=== PATIENT | female | born 1990 | race Caucasian/White ===

== ENCOUNTER → 2021-03-25 | Outpatient (CLI) | payer BC ==
--- NOTE | 2021-03-26 09:05 | US ---
EXAMINATION TYPE: US kidneys/renal and bladder DATE OF EXAM: 03/25/2021 COMPARISON: NONE CLINICAL HISTORY: R31.9 Hematuria. gross hematuria EXAM MEASUREMENTS: Right Kidney: 12.4 x 5.0 x 5.2cm Left Kidney: 11.1 x 5.5 x 6.2cm Right Kidney: mild hydronephrosis versus prominent renal pelvis Left Kidney: mild hydronephrosis versus prominent renal pelvis Bladder: wnl Bilateral Jets seen: left is not specifically imaged this exam. IMPRESSION: 1. Overt hydronephrosis is not identified. There may be some mild prominence of the renal collecting system. Follow-up can be performed as clinically indicated.
== END | disposition home or self-care (01) ==
LOC: RADUSWWP 15:50
PROVIDERS: ATTEND Obstetrics & Gynecology Obstetrics
DX: R31.0 Gross hematuria (principal)
CPT/HCPCS: 76770

== ENCOUNTER 2021-07-22 15:18 | Outpatient (CLI) | payer BC ==
[2021-07-22] MEDS ORDERED: ACETAMINOPHEN TAB 500 MG TAB PO STA (16:13)
[2021-07-22 16:28] VITALS: BP 125/73; PULSE 85; RESP 14; TEMP 97.7
--- NOTE | 2021-10-06 21:49 | P.MSEPDOC ---
Presenting Problems - Arrival Data Date of Arrival on Unit: 07/22/21 Time of Arrival on Unit: 15:19 Mode of Transport: Ambulatory - Complaint OB-Reason for Admission/Chief Complaint: Other Comment: racing heart at work that resulted in headache Medical History - Information : 2 Para: 1 Term: 0 : 1 Abortions: Spontaneous or Elective: 0 Number of Living Children: 1 - Gestational Age Gestational Age by MARTI (wks/days): 31 Weeks and 4 Days Review of Systems - Review of Systems Constitutional: No problems Breast: No problems ENT: No problems Cardiovascular: No problems Respiratory: No problems Gastrointestinal: No problems Genitourinary: No problems Musculoskeletal: No problems Neurological: No problems Skin: No problems Vital Signs - Temperature Temperature: 97.7 F Temperature Source: Temporal Artery Scan - Pulse Right Brachial Pulse Rate: 85 Pulse Assessment Method: Pulse Oximetry - Respirations Respiratory Rate: 14 Oxygen Delivery Method: Room Air O2 Sat by Pulse Oximetry: 99 - Blood Pressure Right Arm Blood Pressure: 125/73 Blood Pressure Mean: 90 Blood Pressure Source: Automatic Cuff Medical Screen Scoring - Assessment - Baby A Baseline FHR: 155 Heart Rate - NICHD Category: Category I (Normal) NST: Reactive Physician Notification - Physician Notified Physician Notified Date: 07/22/21 Physician Notified Time: 16:10 Physician: Lala Osorio New Order Received: Yes - Notification Comment Comment: pt may have tylenol, one time dose in triage, hydrate, recheck bp and headache status in 30 minutes, discontinue fm, discharge home after 30 minutes Maternal Triage Index - Maternal Triage Index Presenting for scheduled procedure w/no complaint: No - Stat/Priority 1 Stat Priority 1: No - Urgent/Priority 2 Urgent Priority 2: No - Prompt/Priority 3 Prompt Priority 3: No - Non-Urgent/Priority 4 Non-Urgent Priority 4: Yes Criteria Met for Priority 4: racing heart at work that resulted in headache Disposition - Disposition OB Disposition: Discharge to home Discharge Date: 07/22/21 Discharge Time: 17:00 I agree with the RN Medical Screening Exam: Yes Case reviewed; plan agreed upon as documented in EMR&OBIX.: Yes Diagnosis: PAROXYSMAL TACHYCARDIA, UNSPECIFIED
== END 2021-07-22 17:01 | disposition home or self-care (01) ==
LOC: FBPOP 15:18
PROVIDERS: ATTEND Obstetrics & Gynecology Obstetrics
DX: O99.413 Diseases of the circulatory system complicating pregnancy, third trimester (principal); I47.9 Paroxysmal tachycardia, unspecified; Z3A.31 31 weeks gestation of pregnancy
CPT/HCPCS: 99213

== ENCOUNTER 2021-08-06 10:39 | Observation (INO) | payer BC ==
[2021-08-06] MEDS ORDERED: BETAMET ACET-BETAMETH SOD PHOS 6 MG/ML MDV IM SCH (11:45)
[2021-08-06 12:01] LABS: Appearance,Urine Cloudy (Clear); Bacteria,Urine Rare /hpf; Bilirubin,Urine Negative (Negative); Blood,Urine Negative (Negative); Color,Urine Yellow; Glucose,Urine (UA) Negative (Negative); Ketones,Urine Negative (Negative); Leukocyte Esterase,Urine Large (Negative); Mucus,Urine Few /hpf; Nitrite,Urine Negative (Negative); Protein,Urine Trace (Negative); RBC,Urine 5 /hpf (0-5); Specific Gravity,Urine 1.023 (1.001-1.035); Squamous Epithelial Cell,Urine 6 /hpf (0-4); Urobilinogen,Urine <2.0 mg/dL (<2.0); WBC,Urine 45 /hpf (0-5)
[2021-08-06 12:03] LABS: Creatinine,Urine Random 192.3 mg/dL; Protein/Creatinine Ratio,Urine 0.031
[2021-08-06 12:32] LABS: Basophils % (A) 0 %; Eosinophils # (A) 0.1 k/uL (0-0.7); Eosinophils % (A) 1 %; HCT 37.8 % (34.0-46.0); HGB 12.2 gm/dL (11.4-16.0); Hypochromasia Slight; Lymphocytes # (A) 1.6 k/uL (1.0-4.8); Lymphocytes % (A) 13 %; MCHC 32.2 g/dL (31.0-37.0); MCV 86.9 fL (80.0-100.0); Mean Platelet Volume 8.1; Monocytes # (A) 0.4 k/uL (0-1.0); Monocytes % (A) 3 %; Neutrophils # (A) 10.1 k/uL (1.3-7.7); Neutrophils % (A) 82 %; Platelet Count 265 k/uL (150-450); RBC 4.35 m/uL (3.80-5.40); RDW 13.8 % (11.5-15.5); WBC 12.3 k/uL (3.8-10.6)
[2021-08-06 12:36] LABS: ALT 12 U/L (4-34); AST 24 U/L (14-36); African American GFR (CKD) >90 (>60 ml/min/1.73 sqM); Blood Urea Nitrogen 9 mg/dL (7-17); LDH 476 U/L (313-618); Non-African American GFR(CKD) >90 (>60 ml/min/1.73 sqM); Uric Acid 6.4 mg/dL (3.7-7.4)
--- NOTE | 2021-08-06 12:41 | P.HPOB ---
History of Present Illness H&P Date: 08/06/21 Chief Complaint: Pelvic pressure This is a 31-year-old 2 para 0101 woman with an estimated due date of 09/19/2021 based on first trimester ultrasound. She presents at 33-5/7 weeks gestation complaining of 3 days of worsening pelvic pressure. This occasionally wraps around into her back and groin. s\She denies contractions, leakage of fluid, vaginal bleeding. She complains of headache but denies visual changes, nausea, vomiting, fever, chills, lower extremity swelling. Obstetric history is significant for a delivery in 2016 at 33-2/7 weeks' gestation. The patient reports that she had sudden onset of pelvic cramping that she interpreted as the need to go to the bathroom. When she was unable to go to the bathroom but the urge to have a bowel movement continued and was uncomfortable she went to the local hospital. She was found to be completely dilated and delivered 20 minutes later. She reports that she felt essentially no pain or contractions other than the sensation of the need to go to the bathroom. She has been followed closely during this and did receive vaginal progesterone through 30 weeks gestation. She had a recent cervical length ultrasound on 07/28/2021 which showed a cervical length of 3.1 cm and a closed cervix, no funneling. Estimated weight was 71.4%, 2196 g. Placenta was anterior, no previa, not low lying. Upon initial evaluation in labor and delivery triage no contractions are graft on the tocometer. Sterile vaginal examination was performed and cervix is 3 cm and 60%, anterior on the RN initial evaluation. One hour later with my examination she is 4 cm dilated and 80% effaced, vertex in the -3 station, cervix anterior. heart tones are category 1 for gestational age. Laboratory data: Blood type O positive, antibody screen negative, rubella immune, VDRL nonreactive, hep Clau surface antigen negative, HIV negative, gonorrhea and clinic cultures negative, abnormal 1 hour glucose tolerance testing with normal three-hour glucose tolerance testing. Hemoglobin A1c 4.9. Maternity 21 testing negative. Group B strep status unknown. Review of Systems All systems: negative Past Medical History Additional Past Medical History / Comment(s): PCOS History of Any Multi-Drug Resistant Organisms: None Reported Past Surgical History: Bariatric Surgery, Cholecystectomy Additional Past Surgical History / Comment(s): Gastric sleeve bariatric surgery in 2014, ankle repair 2009 Past Anesthesia/Blood Transfusion Reactions: No Reported Reaction Past Psychological History: No Psychological Hx Reported Smoking Status: Never smoker Past Alcohol Use History: None Reported Past Drug Use History: None Reported Medications and Allergies Home Medications Medication Instructions Recorded Confirmed Type Pnv No.95/Ferrous Fum/Folic AC 1 each PO DAILY 08/06/21 08/06/21 History [ Multivitamin Tablet] metFORMIN HCL 500 mg PO DAILY 08/06/21 08/06/21 History Allergies Allergy/AdvReac Type Severity Reaction Status Date / Time No Known Allergies Allergy Verified 08/06/21 10:54 Exam Intake and Output 08/05/21 08/06/21 08/06/21 22:59 06:59 14:59 Other: Weight 128.367 kg This is a pleasant and comfortable appearing female who is in no acute distress. HEENT exam is unremarkable. Her breathing is unlabored and her heart is a regular rate and rhythm. The abdomen is obese and gravid with a large overhanging pannus. The abdomen is soft and nontender with no palpable contractions. The extremities on are free of any edema, erythema, rash or asymmetry. On pelvic examination the cervix is 4 cm dilated 80% effaced, vertex in -3 station. No contractions traced on tocometer or palpable at bedside. heart tones category 1 for gestational age. Results Abnormal Lab Results - Last 24 Hours (Table) 08/06/21 Range/Units 11:20 Urine Appearance Cloudy H (Clear) Urine Protein Trace H (Negative) Ur Leukocyte Esterase Large H (Negative) Urine WBC 45 H (0-5) /hpf Ur Squamous Epith Cells 6 H (0-4) /hpf Urine Bacteria Rare H (None) /hpf Urine Mucus Few H (None) /hpf Assessment and Plan (1) 33 weeks gestation of Current Visit: Yes Status: Acute Code(s): Z3A.33 - 33 WEEKS GESTATION OF SNOMED Code(s): 35955627 (2) labor Current Visit: Yes Status: Acute Code(s): O60.00 - LABOR WITHOUT DELIVERY, UNSPECIFIED TRIMESTER SNOMED Code(s): 2347825 (3) History of delivery Current Visit: Yes Status: Acute Code(s): Z87.51 - PERSONAL HISTORY OF PRE- TERM LABOR SNOMED Code(s): 534338798 Plan: 31 year old 2 para 0101 woman admitted at 33-5/7 weeks gestation with labor. History of previous delivery at 33 weeks and 2016. This delivery was generally asymptomatic and precipitous. Based on that history I do not believe she is stable for transport at this time. She will be admitted, group B strep prophylactic antibiotics initiated, betamethasone for lung maturity and fluid rehydration. There is no evidence of contraction activity either on monitoring, exam or per patient report therefore tocolytics not indicated. Should her mate cervix remain unchanged over several hours we can reconsider transferring to a tertiary care facility. I reviewed on the plan with the patient in detail and all questions were answered. 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
[2021-08-06] MEDS ORDERED: LACTATED RINGERS 1,000 ML IV SCH (12:45)
[2021-08-06] MEDS ORDERED: PENICILLIN G POTASSIUM 5,000,000 UNIT in DEXTROSE 5% IN WATER 100 ML IVPB STA ×2 (12:48)
[2021-08-06 13:23] VITALS: BP 139/97; PULSE 93; RESP 18; TEMP 97.9
[2021-08-06] MEDS ORDERED: ACETAMINOPHEN TAB 325 MG TAB PO STA (16:45)
[2021-08-06] MEDS ORDERED: PENICILLIN G POTASSIUM 2,500,000 UNIT in DEXTROSE 5% IN WATER 100 ML IVPB SCH ×2 (17:00)
--- NOTE | 2021-08-06 18:42 | P.PN ---
Progress Note - Text Progress Note Date: 08/06/21 Linda reports feeling well. Some occasional pelvic pressure but overall comfortable. She did have some on bloody show when up to the restroom. Denies contractions or leakage of fluids. Baby is active. Vital signs remained stable. status reassuring by external monitoring. Some uterine urine ability on tocometer, no regular contraction activity. On sterile vaginal exam cervix remains 4-1/2 cm dilated, 70-80% effaced, vertex in the -3 station. Membranes intact. Assessment 30-year-old 2 para 0101 woman at 33-5/7 weeks' gestation. Status post first dose of betamethasone at approximately 12 PM. Her cervix has been unchanged over the last 5-1/2 hours. She is not had any progression in her subjective discomfort or evidence of increasing contraction activity on the tocometer. She is received penicillin for group B strep prophylaxis. I do believe that she is stable to attempt transport. This is discussed at length with the patient and her . Risks of transfer would be precipitous progression of labor with potential delivery unattended. She did have a history of a previous rapid delivery which is of some concern. Reassuringly she is not had any progression of her symptoms or cervical dilation over many hours of observation. The patient and her do wish to attempt transfer is a hoping not to be from the infant in the event of delivery here and solo transfer of the . A believe this is reasonable. I have discussed the case with Dr. William Esparza, attending physician at [facility]. Case is reviewed in detail including her history of previous precipitous delivery. We in agreement that she is stable for transport at this time and she does accept the transfer. Appropriate transport providers have been contacted and we'll facilitate the transfer. All consents obtained and in the chart.
== END 2021-08-06 19:10 | disposition other institution (70) ==
LOC: FBPOP 10:39 → INTOOBSV 12:25 → 4FBP 12:25
PROVIDERS: ADMIT Obstetrics & Gynecology; ATTEND Obstetrics & Gynecology Obstetrics
DX: O60.03 Preterm labor without delivery, third trimester (principal); Z3A.33 33 weeks gestation of pregnancy; R51.9 Headache, unspecified; O99.283 Endocrine, nutritional and metabolic diseases complicating pregnancy, third trimester; E28.2 Polycystic ovarian syndrome; Z79.84 Long term (current) use of oral hypoglycemic drugs; Z90.49 Acquired absence of other specified parts of digestive tract; O99.843 Bariatric surgery status complicating pregnancy, third trimester; Z87.51 Personal history of pre-term labor
CPT/HCPCS: 59025; 99215; 96365; 96372; 82731; 82570; 84156; 82565; 83615; 84450; 84460; 84520; 84550; 85025; 81001; G0378; J2540; J0702

== ENCOUNTER 2021-08-09 09:43 | Outpatient (CLI) | payer BC ==
[2021-08-09] MEDS ORDERED: ACETAMINOPHEN IV (For NPO) 1,000 MG in EMPTY BAG 1 BAG IVPB STA (10:10)
[2021-08-09] MEDS ORDERED: LACTATED RINGERS 1,000 ML IV SCH (10:15)
[2021-08-09 10:50] LABS: Basophils % (A) 0 %; Eosinophils # (A) 0.1 k/uL (0-0.7); Eosinophils % (A) 0 %; HGB 10.8 gm/dL (11.4-16.0); Hypochromasia Slight; Lymphocytes # (A) 2.3 k/uL (1.0-4.8); Lymphocytes % (A) 18 %; MCH 28.1 pg (25.0-35.0); MCHC 32.8 g/dL (31.0-37.0); MCV 85.7 fL (80.0-100.0); Mean Platelet Volume 8.1; Monocytes # (A) 0.7 k/uL (0-1.0); Monocytes % (A) 5 %; Neutrophils # (A) 9.8 k/uL (1.3-7.7); Neutrophils % (A) 75 %; Platelet Count 306 k/uL (150-450); RBC 3.85 m/uL (3.80-5.40); RDW 14.1 % (11.5-15.5); WBC 13.1 k/uL (3.8-10.6)
[2021-08-09 10:54] LABS: Appearance,Urine Cloudy (Clear); Bacteria,Urine Rare /hpf; Bilirubin,Urine Negative (Negative); Blood,Urine Small (Negative); Calcium Oxalate Crystals,Urine Occasional /hpf; Color,Urine Yellow; Glucose,Urine (UA) Negative (Negative); Ketones,Urine Negative (Negative); Leukocyte Esterase,Urine Small (Negative); Mucus,Urine Many /hpf; Nitrite,Urine Negative (Negative); PH, Urine 7.5 (5.0-8.0); Protein,Urine Trace (Negative); RBC,Urine 40 /hpf (0-5); Specific Gravity,Urine 1.027 (1.001-1.035); Squamous Epithelial Cell,Urine 4 /hpf (0-4); Urobilinogen,Urine <2.0 mg/dL (<2.0); WBC,Urine 11 /hpf (0-5)
[2021-08-09 11:06] LABS: ALT 14 U/L (4-34); AST 22 U/L (14-36); African American GFR (CKD) >90 (>60 ml/min/1.73 sqM); Blood Urea Nitrogen 8 mg/dL (7-17); LDH 345 U/L (313-618); Non-African American GFR(CKD) >90 (>60 ml/min/1.73 sqM); Uric Acid 6.2 mg/dL (3.7-7.4)
[2021-08-09 11:08] LABS: Creatinine,Urine Random 214.3 mg/dL; Protein/Creatinine Ratio,Urine 0.061
[2021-08-09 12:14] VITALS: BP 133/85; PULSE 72; RESP 18; TEMP 98
--- NOTE | 2021-10-06 21:52 | P.MSEPDOC ---
Presenting Problems - Arrival Data Date of Arrival on Unit: 08/09/21 Time of Arrival on Unit: 09:55 Mode of Transport: Ambulatory - Complaint OB-Reason for Admission/Chief Complaint: Headache Comment: Headache and pelvic pressure Medical History - Information : 2 Para: 1 Term: 0 : 1 Abortions: Spontaneous or Elective: 0 Number of Living Children: 1 - Gestational Age Gestational Age by MARTI (wks/days): 34 Weeks and 1 Days - History Complications: Prior Comment: pt transferred this weekemyvonne, [facility] at [facility] Review of Systems - Review of Systems Constitutional: No problems Breast: No problems ENT: No problems Cardiovascular: No problems Respiratory: No problems Gastrointestinal: No problems Genitourinary: No problems Musculoskeletal: No problems Neurological: No problems Skin: No problems Vital Signs - Temperature Temperature: 98.0 F Temperature Source: Oral - Pulse Right Sitting Brachial Pulse Rate: 72 Pulse Assessment Method: Automatic Cuff - Respirations Respiratory Rate: 18 Oxygen Delivery Method: Room Air O2 Sat by Pulse Oximetry: 99 - Blood Pressure Left Arm Sitting Blood Pressure: 133/85 Blood Pressure Mean: 101 Medical Screen Scoring - Cervical Exam Dilation (cm): 3 Effacement (%): 60 Station: -2 Membranes: Intact - Assessment - Baby A Baseline FHR: 160 Heart Rate - NICHD Category: Category I (Normal) NST: Reactive Physician Notification - Physician Notified Physician Notified Date: 08/09/21 Physician Notified Time: 12:00 Physician: Lala Osorio New Order Received: Yes - Notification Comment Comment: dc home. mod bedrest, pelvic rest, antibiotics, and increase po fluids. Follow up Wed. as scheduled. Maternal Triage Index - Maternal Triage Index Presenting for scheduled procedure w/no complaint: No - Stat/Priority 1 Stat Priority 1: No - Urgent/Priority 2 Urgent Priority 2: No - Prompt/Priority 3 Prompt Priority 3: No - Non-Urgent/Priority 4 Non-Urgent Priority 4: Yes Criteria Met for Priority 4: PIH eval, sterile vaginal exam, r/o kidney stone Disposition - Disposition OB Disposition: Discharge to home Discharge Date: 08/09/21 Discharge Time: 12:14 I agree with the RN Medical Screening Exam: Yes Case reviewed; plan agreed upon as documented in EMR&OBIX.: Yes Diagnosis: HEADACHE, UNSPECIFIED
== END 2021-08-09 12:16 | disposition home or self-care (01) ==
LOC: FBPOP 09:43
PROVIDERS: ATTEND Obstetrics & Gynecology Obstetrics
DX: O26.893 Other specified pregnancy related conditions, third trimester (principal); R51.9 Headache, unspecified; Z3A.34 34 weeks gestation of pregnancy
CPT/HCPCS: 59025; 99215; 96361; 96365; 82570; 84156; 82565; 83615; 84450; 84460; 84520; 84550; 85025; 81001; J0131

== ENCOUNTER 2021-08-30 11:00 | Outpatient (CLI) | payer BC ==
[2021-08-30] MEDS ORDERED: LACTATED RINGERS 1,000 ML IV ONE (11:15)
[2021-08-30 11:33] LABS: Appearance,Urine Clear (Clear); Bilirubin,Urine Negative (Negative); Blood,Urine Small (Negative); Calcium Oxalate Crystals,Urine Few /hpf; Color,Urine Yellow; Glucose,Urine (UA) Negative (Negative); Ketones,Urine Negative (Negative); Leukocyte Esterase,Urine Small (Negative); Mucus,Urine Occasional /hpf; Nitrite,Urine Negative (Negative); PH, Urine 6.5 (5.0-8.0); Protein,Urine Trace (Negative); RBC,Urine 60 /hpf (0-5); Specific Gravity,Urine 1.023 (1.001-1.035); Squamous Epithelial Cell,Urine 2 /hpf (0-4); WBC,Urine 3 /hpf (0-5)
[2021-08-30 13:14] VITALS: BP 136/84; PULSE 88; RESP 18; TEMP 97
--- NOTE | 2021-10-06 22:03 | P.MSEPDOC ---
Presenting Problems - Arrival Data Date of Arrival on Unit: 08/30/21 Time of Arrival on Unit: 11:08 Mode of Transport: Ambulatory - Complaint OB-Reason for Admission/Chief Complaint: Other Comment: Pt sent from Office for repeat SVE, IV hydration and UA. Medical History - Information : 2 Para: 1 Term: 0 : 1 Abortions: Spontaneous or Elective: 0 Number of Living Children: 1 - Gestational Age Gestational Age by MARTI (wks/days): 37 Weeks and 1 Days - History Complications: Prior Review of Systems - Review of Systems Constitutional: No problems Breast: No problems ENT: No problems Cardiovascular: No problems Respiratory: No problems Gastrointestinal: No problems Genitourinary: No problems Musculoskeletal: No problems Neurological: No problems Skin: No problems Vital Signs - Temperature Temperature: 97.0 F Temperature Source: Temporal Artery Scan - Pulse Right Sitting Brachial Pulse Rate: 88 Pulse Assessment Method: Automatic Cuff - Respirations Respiratory Rate: 18 Oxygen Delivery Method: Room Air O2 Sat by Pulse Oximetry: 98 - Blood Pressure Right Arm Sitting Blood Pressure: 136/84 Blood Pressure Mean: 101 Blood Pressure Source: Automatic Cuff Medical Screen Scoring - Cervical Exam Dilation (cm): 4 Effacement (%): 80 Station: -2 Membranes: Intact - Assessment - Baby A Baseline FHR: 135 Heart Rate - NICHD Category: Category I (Normal) NST: Reactive Physician Notification - Physician Notified Physician Notified Date: 08/30/21 Physician Notified Time: 12:06 Physician: Lala Osorio New Order Received: Yes - Notification Comment Comment: No cervical change in the last 2 hours, UA results reviewed, IV hydration x1L. Ok to dc home. Pt to return with continued or worsening symptoms. Maternal Triage Index - Maternal Triage Index Presenting for scheduled procedure w/no complaint: Yes - Scheduled/Requesting Priority 5 Scheduled/Requesting Priority 5: No Disposition - Disposition OB Disposition: Discharge to home Discharge Date: 08/30/21 Discharge Time: 13:10 I agree with the RN Medical Screening Exam: Yes Case reviewed; plan agreed upon as documented in EMR&OBIX.: Yes Diagnosis: FALSE LABOR AT OR AFTER 37 COMPLETED WEEKS OF GESTATION
== END 2021-08-30 13:16 | disposition home or self-care (01) ==
LOC: FBPOP 11:00
PROVIDERS: ATTEND Obstetrics & Gynecology Obstetrics
DX: O47.1 False labor at or after 37 completed weeks of gestation (principal); Z3A.37 37 weeks gestation of pregnancy
CPT/HCPCS: 59025; 81001; 96360; 96361; 99214

== ENCOUNTER 2021-09-08 16:55 | Inpatient (IN) | payer BC ==
[2021-09-08] MEDS ORDERED: LIDOCAINE 1% (PF) 10 MG/ML (30 ML SDV) SQ PRN (17:37)
[2021-09-08] MEDS ORDERED: CARBOPROST TROMETHAMINE 250 MCG/ML 1 ML AMP IM PRN (17:37)
[2021-09-08] MEDS ORDERED: METHYLERGONOVINE 0.2 MG/ML 1 ML AMP IM PRN (17:37)
[2021-09-08] MEDS ORDERED: TERBUTALINE 1 MG/ML VIAL SQ PRN (17:37)
[2021-09-08] MEDS ORDERED: OXYTOCIN 10 UNIT/ML 1 ML VIAL IM PRN (17:37)
[2021-09-08] MEDS ORDERED: BUTORPHANOL 1 MG/ML 1 ML VIAL IV PRN (17:40)
[2021-09-08] MEDS ORDERED: OXYTOCIN 30 UNITS/500 ML NS 30 UNIT in SALINE 1 500ML.BAG IV SCH (17:45)
[2021-09-08 17:55] LABS: Basophils % (A) 0 %; Eosinophils # (A) 0.1 k/uL (0-0.7); Eosinophils % (A) 1 %; HCT 36.1 % (34.0-46.0); HGB 11.9 gm/dL (11.4-16.0); Hypochromasia Slight; Lymphocytes # (A) 2.1 k/uL (1.0-4.8); Lymphocytes % (A) 16 %; MCH 26.9 pg (25.0-35.0); MCV 81.6 fL (80.0-100.0); Mean Platelet Volume 8.6; Monocytes # (A) 0.5 k/uL (0-1.0); Monocytes % (A) 4 %; Neutrophils % (A) 77 %; Platelet Count 327 k/uL (150-450); RBC 4.42 m/uL (3.80-5.40); RDW 14.5 % (11.5-15.5)
--- NOTE | 2021-09-08 19:01 | P.HPOB ---
History of Present Illness H&P Date: 09/08/21 Chief Complaint: 38+ weeks, spontaneous rupture of membranes The patient is a 31-year-old 2 para 0101 admitted at 38+ weeks as established by early ultrasound present with documented spontaneous rupture of membranes at 4:00 this afternoon. She denies any ongoing contractions. Her has been essentially uncomplicated. She does carry a history of a gastric sleeve in the past. She additionally has a history of a 33 week delivery which was fairly precipitous in nature but has had no significant problems this . On labor and delivery, all signs reassuring with a category 1 heart rate tracing. Group B strep status is negative. Obstetrical history: 2 para 0101 with a previous 33 week normal vaginal delivery, fairly precipitous in nature. Current statistics are listed in history of present illness. EDC of 09/19/2021 as established by ultrasound. Laboratory workup demonstrates a blood type of O+ with a negative antibody screen. Rubella status is immune. The remainder of the laboratory workup was within normal limits. Early Glucola was normal. Second trimester Glucola was elevated but followed by a normal three-hour glucose tolerance test. Group B strep status is negative. Gynecologic history: Unremarkable with no history of any infections to include STDs. Review of Systems Review of systems is confined to history of present illness. Past Medical History Additional Past Medical History / Comment(s): PCOS History of Any Multi-Drug Resistant Organisms: None Reported Past Surgical History: Bariatric Surgery, Cholecystectomy Additional Past Surgical History / Comment(s): Gastric sleeve bariatric surgery in 2013, ankle repair 2008 Past Anesthesia/Blood Transfusion Reactions: No Reported Reaction Past Psychological History: No Psychological Hx Reported Smoking Status: Never smoker Past Alcohol Use History: None Reported Past Drug Use History: None Reported Medications and Allergies Home Medications Medication Instructions Recorded Confirmed Type Pnv No.95/Ferrous Fum/Folic AC 1 each PO DAILY 08/06/21 09/08/21 History [ Multivitamin Tablet] metFORMIN HCL 500 mg PO DAILY 08/06/21 09/08/21 History Aspirin 1 tab PO DAILY 08/30/21 09/08/21 History Allergies Allergy/AdvReac Type Severity Reaction Status Date / Time No Known Allergies Allergy Verified 09/08/21 17:09 Exam Vital Signs Temp Pulse Resp BP Pulse Ox 09/08/21 17:37 98.0 F 81 18 140/89 09/08/21 17:08 97.0 F L 85 16 137/76 100 Intake and Output 09/08/21 09/08/21 09/08/21 06:59 14:59 22:59 Other: Weight 131.542 kg The patient is a well-developed, moderately obese white female in no acute distress. Her heart has a regular rhythm and rate without murmur. Her lungs are clear to auscultation bilaterally in all almazan. Her abdomen is gravid, nondistended, has normal active bowel sounds, soft, nontender, and without any palpable masses aside from the uterine fundus. Her extremities are without any cyanosis, clubbing, or significant edema and are nontender to palpation bilaterally. Digital cervical examination performed by the nursing staff demonstrates her cervix to be 4 cm dilated, 80% effaced, the vertex in presentation at -2 station. Spontaneous rupture of membranes is confirmed. Cervical examination is unchanged from most recent check in the office. Results Result Diagrams: 09/08/21 17:43 Abnormal Lab Results - Last 24 Hours (Table) 09/08/21 Range/Units 17:43 WBC 13.0 H (3.8-10.6) k/uL Neutrophils # 10.0 H (1.3-7.7) k/uL Assessment and Plan (1) Spontaneous rupture of amniotic membranes Current Visit: Yes Status: Acute Code(s): LCL4438 - SNOMED Code(s): 942805005 (2) Term Current Visit: Yes Status: Acute Code(s): Z34.90 - ENCNTR FOR SUPRVSN OF NORMAL , UNSP, UNSP TRIMESTER SNOMED Code(s): 13213204 Plan: The patient is admitted for management of labor. 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 If all signs remained reassuring, I have agreed to this plan. She is a good candidate for either IV o r epidural analgesia, whichever she may choose. She will continue to have close maternal and surveillance and expectant management will be practiced.
[2021-09-08] MEDS: LACTATED RINGERS 1,000 ML IV SCH ×3 (21:05→23:23)
[2021-09-08] MEDS ORDERED: fentaNYL (PF) 50 MCG/ML 5 ML AMP ONE (21:40)
[2021-09-08] MEDS ORDERED: ROPIVACAINE 5MG/ML 20ML VIAL ONE (21:40)
[2021-09-08] MEDS ORDERED: SODIUM CHLORIDE 0.9% 100 ML BAG ONE (21:40)
[2021-09-09] MEDS ORDERED: diphenhydrAMINE 50 MG CAP PO PRN (00:49)
[2021-09-09] MEDS ORDERED: SIMETHICONE 80 MG CHEWABLE PO PRN (00:49)
[2021-09-09] MEDS ORDERED: ZOLPIDEM 5 MG TAB PO PRN (00:49)
[2021-09-09] MEDS ORDERED: diphenhydrAMINE 50 MG/ML 1 ML VIAL IVP PRN ×2 (00:49)
[2021-09-09] MEDS ORDERED: BENZOCAINE/MENTHOL SPRAY 1 GM/SPRAY AEROSOL TOPICAL PRN (00:49)
[2021-09-09] MEDS ORDERED: diphenhydrAMINE 25 MG CAP PO PRN (00:49)
[2021-09-09] MEDS ORDERED: HYDROcodone/APAP 5-325MG 1 EACH TAB PO PRN (00:49)
[2021-09-09] MEDS ORDERED: LANOLIN CREAM 5 GM TUBE TOPICAL PRN (00:49)
[2021-09-09] MEDS ORDERED: HYDROCORTISONE 2.5% RECTAL CREAM 30 GM TUBE RECTAL PRN (00:49)
[2021-09-09] MEDS ORDERED: HYDROcodone/APAP 7.5-325MG 1 EACH TAB PO PRN (00:49)
--- NOTE | 2021-09-09 00:54 | P.PROBDLV ---
Vaginal Delivery Note - . Vaginal Delivery Note: The patient is a 31-year-old 2 para 0101 admitted at 38-3/7 weeks by good dating parameters. She is admitted with documented spontaneous rupture of membranes and no initial contractions. Her has been complicated only by an episode of labor at approximately 33 weeks at which time she received steroids and was transferred. Group B strep status is negative. On labor and delivery, all signs were reassuring with a category 1 heart rate tracing. Over the course of several hours, labor began in earnest and she began to make cervical change. She requested an epidural catheter which was placed for analgesia. She did continue to have moderate to significant occasional variable decelerations. She ultimately progressed to complete and began pushing. She pushed over the course of approximately 20 minutes to a normal spontaneous vaginal delivery of a viable 7 lbs. 4 oz. baby boy with Apgars of 8 at 1 minute and 9 at 5 minutes delivered in the right occiput anterior position. There was a nuchal cord 1 which was reduced following delivery of the infant. The placenta was delivered spontaneously, intact, and grossly normal with a grossly normal, centrally inserted three-vessel cord. There was noted to be a second-degree right vaginal sulcus tear which extended to just outside of the hymeneal ring was repaired continuously in standard fashion using 3-0 chromic catgut without difficulty. Estimated blood loss for the case was approximately 250 mL. There were no complications. All sponge, instrument, and needle counts were correct. Both mother and are resting comfortably in recovery.
[2021-09-09] MEDS ORDERED: OXYTOCIN 30 UNITS/500 ML NS 30 UNIT in SALINE 1 500ML.BAG IV SCH (01:00)
[2021-09-09] MEDS: IBUPROFEN 600 MG TAB PO PRN ×4 (01:26→23:21)
[2021-09-09] MEDS: ACETAMINOPHEN TAB 325 MG TAB PO PRN ×2 (04:43→20:16)
[2021-09-09] MEDS: SENNOSIDES-DOCUSATE SODIUM 1 EACH TAB PO SCH ×2 (08:18→20:15)
[2021-09-10] MEDS: ACETAMINOPHEN TAB 325 MG TAB PO PRN (04:53)
[2021-09-10 07:52] LABS: Basophils % (A) 0 %; Eosinophils # (A) 0.2 k/uL (0-0.7); Eosinophils % (A) 2 %; HCT 32.4 % (34.0-46.0); HGB 10.2 gm/dL (11.4-16.0); Hypochromasia Moderate; Lymphocytes # (A) 1.8 k/uL (1.0-4.8); Lymphocytes % (A) 18 %; MCH 26.1 pg (25.0-35.0); MCHC 31.4 g/dL (31.0-37.0); MCV 83.2 fL (80.0-100.0); Mean Platelet Volume 9.2; Monocytes # (A) 0.4 k/uL (0-1.0); Monocytes % (A) 4 %; Neutrophils # (A) 7.3 k/uL (1.3-7.7); Neutrophils % (A) 73 %; Platelet Count 260 k/uL (150-450); RBC 3.89 m/uL (3.80-5.40); RDW 15.7 % (11.5-15.5); WBC 9.9 k/uL (3.8-10.6)
[2021-09-10] MEDS: SENNOSIDES-DOCUSATE SODIUM 1 EACH TAB PO SCH (08:04)
[2021-09-10 08:14] VITALS: TEMP 98.1
--- NOTE | 2021-09-10 09:59 | P.DS ---
Providers Date of admission: 09/08/21 17:28 Expected date of discharge: 09/10/21 Attending physician: Lala Osorio Primary care physician: Stated None - Discharge Diagnosis(es) (1) Laceration of vaginal wall or sulcus without perineal laceration during delivery Current Visit: Yes Status: Acute (2) Normal spontaneous vaginal delivery Current Visit: Yes Status: Acute (3) Nuchal cord, delivered, current hospitalization Current Visit: Yes Status: Acute (4) Spontaneous rupture of amniotic membranes Current Visit: Yes Status: Acute (5) Term Current Visit: Yes Status: Acute Hospital Course: This is a 31-year-old G2 now P1102 that was admitted to labor and delivery at 38-3/7 weeks with spontaneous rupture of membranes. Patient denied contractions at that time. Patient did have a complicated by an episode of labor at 33 weeks for which time she received steroids and was transferred to tertiary care center. Patient was admitted to labor and delivery initially with no contractions appreciated. 2 hours after admission she had another gush of fluid and began to make cervical change. Patient then requested epidural placement. Anesthesia did place epidural without difficulty. Patient progressed to complete began pushing and had a normal spontaneous vaginal delivery of a viable male weight of 7 lbs. 4 oz. and Apgars of 8 and 9 at one and 5 minutes respectively. Patient did sustain a lateral vaginal sulcal tear which was repaired in the usual fashion with 3-0 chromic. Patient's course has been uneventful. On this day #1 she is involuting and voiding without difficulty. She is tolerating a regular diet without nausea or vomiting. She states her pain is well-controlled. Lochia is noted to be moderate. She is breast-feeding without difficulty. She would like discharge home today if is discharged home in addition. Patient Condition at Discharge: Good Plan - Discharge Summary New Discharge Prescriptions: No Action metFORMIN HCL 500 mg PO DAILY Pnv No.95/Ferrous Fum/Folic AC [ Multivitamin Tablet] 1 each PO DAILY Aspirin 1 tab PO DAILY Discharge Medication List Pnv No.95/Ferrous Fum/Folic AC [ Multivitamin Tablet] 1 each PO DAILY 08/06/21 [History] metFORMIN HCL 500 mg PO DAILY 08/06/21 [History] Aspirin 1 tab PO DAILY 08/30/21 [History] Follow up Appointment(s)/Referral(s): Lala Osorio DO [Doctor of Osteopathic Medicine] - 4 Weeks Patient Instructions/Handouts: Vaginal Delivery (DC), Vaginal Delivery (GEN) Discharge Disposition: HOME SELF-CARE
[2021-09-10] MEDS: IBUPROFEN 600 MG TAB PO PRN (15:26)
[2021-09-10 15:33] VITALS: BP 128/74; PULSE 80; RESP 17
== END 2021-09-10 17:59 | disposition home or self-care (01) | DRG 806 ==
LOC: FBPOP 16:55 → 4FBP 17:28
PROVIDERS: ADMIT Obstetrics & Gynecology; ATTEND Obstetrics & Gynecology Obstetrics
PROC: 10E0XZZ Delivery of Products of Conception, External Approach (ICD-10-PCS; principal; 2021-09-09)
PROC: 3E0R3NZ Introduction of Analgesics, Hypnotics, Sedatives into Spinal Canal, Percutaneous Approach (ICD-10-PCS; principal; 2021-09-09)
PROC: 00HU33Z Insertion of Infusion Device into Spinal Canal, Percutaneous Approach (ICD-10-PCS; principal; 2021-09-09)
PROC: 0KQM0ZZ Repair Perineum Muscle, Open Approach (ICD-10-PCS; principal; 2021-09-09)
DX: O69.81X0 Labor and delivery complicated by cord around neck, without compression, not applicable or unspecified (principal); O71.4 Obstetric high vaginal laceration alone; Z37.0 Single live birth; O76 Abnormality in fetal heart rate and rhythm complicating labor and delivery; O99.844 Bariatric surgery status complicating childbirth; O62.3 Precipitate labor; Z3A.38 38 weeks gestation of pregnancy; O32.8XX0 Maternal care for other malpresentation of fetus, not applicable or unspecified; Z79.84 Long term (current) use of oral hypoglycemic drugs; Z79.82 Long term (current) use of aspirin
CPT/HCPCS: 59025; 84112; 85025; 86850; 86900; 86901; 99213

== ENCOUNTER 2023-01-19 04:14 | Emergency (ER) | payer BC ==
[2023-01-19 04:20] VITALS: BP 104/67; PULSE 92; RESP 16; TEMP 98.3
--- NOTE | 2023-01-19 04:45 | ED ---
Wound/Laceration HPI - General Chief Complaint: Wound/Laceration Stated Complaint: Post-Op Bleeding Time Seen by Provider: 01/19/23 04:15 Source: patient Mode of arrival: ambulatory Limitations: no limitations - History of Present Illness Initial Comments: This is a 32-year-old female to the ER stay. Patient's plantar emergency for today for evaluation of wound patient has wound from abdominoplasty after significant amount of weight loss from bariatric surgery. Patient has had low and slow healing wounds. Patient did have bleeding from the low today which made her concerned and comes DF for evaluation but otherwise no complaints of lightheadedness dizziness weakness no blood thinners no injury or complaint no abdominal pain. Bleeding from wound which is had slow to heal with dehiscence and future wound VAC treatment -: minutes(s) Place: home Associated Symptoms: none Treatments Prior to Arrival: bandage - Related Data Home Medications Medication Instructions Recorded Confirmed Pnv No.95/Ferrous Fum/Folic AC 1 each PO DAILY 08/06/21 09/08/21 [ Multivitamin Tablet] metFORMIN HCL 500 mg PO DAILY 08/06/21 09/08/21 Aspirin 1 tab PO DAILY 08/30/21 09/08/21 Allergies Allergy/AdvReac Type Severity Reaction Status Date / Time No Known Allergies Allergy Verified 01/19/23 04:20 Review of Systems ROS Statement: Those systems with pertinent positive or pertinent negative responses have been documented in the HPI. ROS Other: All systems not noted in ROS Statement are negative. Past Medical History Additional Past Medical History / Comment(s): PCOS, LUPUS History of Any Multi-Drug Resistant Organisms: None Reported Past Surgical History: Bariatric Surgery, Cholecystectomy Additional Past Surgical History / Comment(s): Gastric sleeve bariatric surgery in 2013, ankle repair 2008, Abdominoplasty december 12, 2022 Past Anesthesia/Blood Transfusion Reactions: No Reported Reaction Past Psychological History: No Psychological Hx Reported Smoking Status: Never smoker Past Alcohol Use History: None Reported Past Drug Use History: None Reported General Exam - General Exam Comments Initial Comments: Incision is clean dry and intact with low healing by secondary intent with cur rent bleeding not active Limitations: no limitations General appearance: alert, in no apparent distress Head exam: Present: atraumatic, normocephalic, normal inspection Eye exam: Present: normal appearance, PERRL, EOMI. Absent: scleral icterus, conjunctival injection, periorbital swelling ENT exam: Present: normal exam, mucous membranes moist Neck exam: Present: normal inspection. Absent: tenderness, meningismus, lymphadenopathy Respiratory exam: Present: normal lung sounds bilaterally. Absent: respiratory distress, wheezes, rales, rhonchi, stridor Cardiovascular Exam: Present: regular rate, normal rhythm, normal heart sounds. Absent: systolic murmur, diastolic murmur, rubs, gallop, clicks GI/Abdominal exam: Present: soft, normal bowel sounds. Absent: distended, tenderness, guarding, rebound, rigid Extremities exam: Present: normal inspection, full ROM, normal capillary refill. Absent: tenderness, pedal edema, joint swelling, calf tenderness Back exam: Present: normal inspection Neurological exam: Present: alert, oriented X3, CN II-XII intact Psychiatric exam: Present: normal affect, normal mood Skin exam: Present: warm, dry, intact, normal color. Absent: rash Course Vital Signs 01/19/23 04:15 Temperature 98.3 F Pulse Rate 92 Respiratory 16 Rate Blood Pressure 104/67 O2 Sat by Pulse 100 Oximetry - Reevaluation(s) Reevaluation #1: 01/19/23 04:54 Medical records are reviewed Reevaluation #2: 01/19/23 04:55 Patient's bleeding is stopped and wound is dressed Reevaluation #3: 01/19/23 04:55 Patient informed results and questions answered Reevaluation #4: 01/19/23 04:45 Was pt. sent in by a medical professional or institution (, LUCY, SPLICING TECHNICIAN, urgent care, hospital, or retirement...) When possible be specific @ -no Did you speak to anyone other than the patient for history (EMS, parent, family, police, friend...)? What history was obtained from this source @ -no Did you review nursing and triage notes (agree or disagree)? Why? @ -agree Are old charts reviewed (outside hosp., previous admission, EMS record, old EKG, old radiological studies, urgent care reports/EKG's, retirement records)? Report findings @ -yes Differential Diagnosis (chest pain, altered mental status, abdominal pain women, abdominal pain men, vaginal bleeding, weakness, fever, dyspnea, syncope, headache, dizziness, GI bleed, back pain, seizure, CVA, palpatations, mental health, musculoskeletal)? @ -prior EKG interpreted by me (3pts min.). @ -no X-rays interpreted by me (1pt min.). @ -no CT interpreted by me (1pt min.). @ -no U/S interpreted by me (1pt. min.). @ -no What testing was considered but not performed or refused? (CT, X-rays, U/S, labs)? Why? @ -none What meds were considered but not given or refused? Why? @ -none Did you discuss the management of the patient with other professionals (professionals i.e. , PA, SPLICING TECHNICIAN, lab, RT, psych nurse, social scientist, director of promotions, teacher, parachute officer, case investigator)? Give summary @ -no Was smoking cessation discussed for >3mins.? @ -no Was critical care preformed (if so, how long)? @ -no Were there social determinants of health that impacted care today? How? (Homelessness, low income, unemployed, alcoholism, drug addiction, transportation, low edu. Level, literacy, decrease access to med. care, penitentiary, rehab)? @ -none Was there de-escalation of care discussed even if they declined (Discuss DNR or withdrawal of care, Hospice)? DNR status @ -no What co-morbidities impacted this encounter? (DM, HTN, Smoking, COPD, CAD, Cancer, CVA, ARF, Chemo, Hep., AIDS, mental health diagnosis, sleep apnea, morbid obesity)? @ -none Was patient admitted / discharged? Hospital course, mention meds given and route, prescriptions, significant lab abnormalities, going to OR and other pertinent info. @ - 32 female to the emergency department for evaluation of wound with no dehiscence and minimal bleeding. Patient has wound and bandage treated, bandage placed and patient can be discharged home Discharge Undiagnosed new problem with uncertain prognosis? @ -no Drug Therapy requiring intensive monitoring for toxicity (Heparin, Nitro, Insulin, Cardizem)? @ -no Were any procedures done? @ -no Diagnosis/symptom? @ -Wound dehiscence Acute, or Chronic, or Acute on Chronic? @ -Acute Uncomplicated (without systemic symptoms) or Complicated (systemic symptoms)? @ -Complicated Side effects of treatment? @ -no Exacerbation, Progression, or Severe Exacerbation? @ -exacerbation Poses a threat to life or bodily function? How? (Chest pain, [place], AR, pneumonia, PE, COPD, DKA, ARF, appy, cholecystitis, CVA, Diverticulitis, Homicidal, Suicidal, threat to staff... and all critical care pts) @ -no Medical Decision Making - Medical Decision Making 32 female to the emergency department for evaluation of wound with no dehiscence and minimal bleeding. Patient has wound and bandage treated, bandage placed and patient can be discharged home Disposition Clinical Impression: Dehiscence of incision Disposition: HOME SELF-CARE Instructions (If sedation given, give patient instructions): Acute Wound Care (ED), Chronic Wound Care (ED) Is patient prescribed a controlled substance at d/c from ED?: No Referrals: Manasa Martin MD [Primary Care Provider] - 1-2 days Time of Disposition: 04:45
== END 2023-01-19 05:10 | disposition home or self-care (01) ==
LOC: EC 04:14
DX: T81.31XA Disruption of external operation (surgical) wound, not elsewhere classified, initial encounter (principal)
CPT/HCPCS: 99283